=== PATIENT | male | born 1970 | race Caucasian/White ===

== ENCOUNTER 2021-05-11 13:57 | Outpatient (RCR) | payer BC | END 2021-05-13 | LOC: PT 13:57 | PROVIDERS: ATTEND Specialist | DX: M17.11 Unilateral primary osteoarthritis, right knee (principal); M62.81 Muscle weakness (generalized); M25.461 Effusion, right knee ==

== ENCOUNTER 2021-06-08 08:00 | Outpatient (RCR) | payer BC | END 2021-06-12 | LOC: PT 08:00 | PROVIDERS: ATTEND Specialist | DX: M17.11 Unilateral primary osteoarthritis, right knee (principal) | CPT/HCPCS: 97139 ==

== ENCOUNTER 2021-06-18 14:00 | Outpatient (RCR) | payer BC | END 2021-07-13 | LOC: PT 14:00 | PROVIDERS: ATTEND Specialist | DX: M17.11 Unilateral primary osteoarthritis, right knee (principal) | CPT/HCPCS: 97139 ==